=== PATIENT | female | born 1995 | race Caucasian/White ===

== ENCOUNTER 2021-05-18 18:53 | Emergency (ER) | payer OTHER ==
[~2021-05-18] VITALS: Ht 157.5 cm; Wt 68.0 kg
[~2021-05-18 18:53] MED LIST: CIPROFLOXACIN500 M1 PO; ENALAPRIL MALE2.5 M1 PO; LIPITOR10 MG PO; NORCO 5-325 TA1 EACH PO; NOVOLOG100 UNIT/1; ZOLOFT100 MG PO
[2021-05-18 19:44] LABS: URINE BILIRUBIN NEGATIVE (Negative); URINE BLOOD NEGATIVE (Negative); URINE CLARITY CLEAR; URINE COLOR YELLOW; URINE GLUCOSE-RANDOM* 3+ (Negative); URINE KETONES NEGATIVE (Negative); URINE LEUKOCYTES-REFLEX TRACE (Negative); URINE NITRITE-REFLEX NEGATIVE (Negative); URINE PROTEIN (DIPSTICK) NEGATIVE (Negative); URINE UROBILINOGEN 0.2 E.U./dl (0.2-1.0)
[2021-05-18 20:29] LABS: ABSOLUTE NEUTROPHILS 10.1 thou/uL (1.4-8.2); BASOPHILS 0.6 % (0.0-2.0); EOSINOPHILS 1.4 % (0.0-3.0); HEMATOCRIT 41.4 % (37.0-47.0); HEMOGLOBIN 14.1 gm/dL (12.0-15.0); LYMPHOCYTES 11.4 % (24.0-44.0); MCH 32.6 pg (26.0-34.0); MCHC 34.1 g/dL (28.0-37.0); MCV 95.6 fL (80.0-100.0); MONOCYTES 7.7 % (1.0-8.0); PLATELET COUNT 317 thou/uL (150-400); POLYS 78.9 % (36.0-66.0); RBC 4.33 mil/uL (4.20-5.00); RDW 12.6 % (10.5-14.5); WBC 12.7 thou/uL (4.0-11.0)
[2021-05-18 20:41] LABS: ALBUMIN 3.8 g/dL (3.4-5.0); CALCIUM 8.6 mg/dL (8.5-10.1); POTASSIUM 4.2 mmol/L (3.5-5.1); TOTAL BILIRUBIN 0.5 mg/dL (0.2-1.0); TOTAL PROTEIN 7.3 g/dL (6.4-8.2)
[2021-05-18 23:10] VITALS: BP 115/61
== END 2021-05-18 23:10 | disposition home or self-care (01) ==
LOC: ER 18:53
PROVIDERS: Emergency Medicine; Nurse Practitioner
DX: B34.9 Viral infection, unspecified (principal); Z20.822 Contact with and (suspected) exposure to COVID-19